=== PATIENT | female | born 1930 | race Caucasian/White ===

== ENCOUNTER 2017-03-04 16:27 | Emergency (ER) | payer OTHER ==
--- NOTE | 2017-03-04 17:58 | ED NURSING NOTES ---
Clinical Report - Nurses [facility] [address] [place] [address] 03/04/2017 16:27 Patient: IMAN DO TRIAGE Triage time 16:25. Acuity: LEVEL 3. Chief Complaint: CHEST PAIN. 17:09 03/04/17. Alert. No acute distress. SEPSIS SCREEN: Sepsis Screen. Negative (no infection suspected/documented). DAIN COMA SCORE: Dain Coma Scale: 15- eyes open spontaneously (4); best verbal response- oriented x 4 (5); best motor response- obeys commands (6). --17:09 Aaliyah Booth R.N. 16:32 03/04/17. BP: 143/84. HR: 102. RR: 13. O2 saturation: 94%. Temp: 98.9 F. Pain level now: 0/10. --17:09 Aaliyah Booth R.N. Weight: 86.1 kg estimated. Height/Length: 66 inches Estimated. BMI: 30.7. --17:06 Aaliyah Booth R.N. Medications None. --16:36 Aaliyah Booth R.N. Allergies None. --16:37 Aaliyah Booth R.N. History Arrived by EMS. Historian: patient. This started today. ( Patient states that she began feeling abdominal pain and bloating after eating lunch. She reports that the pain moved up to her chest, so she called EMS.). ( abdominal pain). No difficulty breathing, sweating episodes, fever or cough. Treatment TELEPHONE ENGINEER: None. PAST MEDICAL HX: Immunizations: up-to-date. Denies current . SOCIAL HX: Smoker- current status unknown. No alcohol use or drug use. FALL RISK ASSESSMENT: Fall risk assessment completed. No fall risk identified. NUTRITIONAL RISK ASSESSMENT: The nutritional risk assessment revealed no deficiencies. FUNCTIONAL ASSESSMENT: Functional assessment: no impairments noted. LEARNING NEEDS ASSESSMENT: The learning needs assessment revealed no barriers. SKIN INTEGRITY ASSESSMENT: Skin integrity risk assessment completed. No skin integrity risk identified. --17:09 Aaliyah Booth R.N. PROBLEMS: Chest Pain of GI Origin. Skin Cancer. Hypertension. CVA - Cerebrovascular Accident. Sprain. Herpes Zoster. Aneurysm, Cerebral. Dizziness. --16:37 Aaliyah Booth R.N. ADDITIONAL SURGERIES: Hysterectomy. --16:37 Aaliyah Booth R.N. Brain surgery after CVA. --17:12 Chan Kline R.N. Interventions ID band on patient. To treatment room. --17:09 Aaliyah Booth R.N. NURSING PROGRESS NOTES EKG time: (1720). EKG was ordered, performed by a tech and shown to the ED physician. --17:21 Ansley Funez ER Tech1. DISPOSITION / DISCHARGE 18:50. No learning barriers present. Discharge instructions provided and reviewed with the patient. Reviewed medication(s). Treatments reviewed. Reviewed diet. Patient verbalized understanding. Written instructions provided in Spanish. The patient was discharged by the physician. She was discharged home. She left the Emergency Department in a wheelchair and via taxi. --07:32 Aaliyah Booth R.N. 07:30 03/05/17. BP: 136/69. HR: 80. RR: 15. O2 saturation: 98%. Temp: deferred. Pain level now: 0/10. --07:32 Aaliyah Booth R.N. Locked/Released at 03/05/2017 7:32 by Aaliyah Booth R.N.
--- NOTE | 2017-03-04 17:58 | ED CLINICAL REPORT ---
Clinical Report - Physicians/Mid Levels [facility] [address] [place] [address] 03/04/2017 16:27 Patient: IMAN DO Time Seen: 16:38. Arrived- By ambulance. Historian- patient and EMS personnel. HISTORY OF PRESENT ILLNESS Chief Complaint: ABDOMINAL PAIN and CHEST PAIN. It is described as "pain" and burning. No radiation. It is described as located in the central chest and the epigastric area. This started today about one hour ago and is now gone. At its maximum, severity described as moderate. When seen in the E.D., it was gone. Modifying factors- worsened by food. Not relieved by anything. No nausea, loss of appetite, vomiting or diarrhea. (Patient states that the pain began after she ate her lunch. Patient denies current complaints.). Similar symptoms previously: Occasionally. Recent medical care: Not recently seen/assessed. REVIEW OF SYSTEMS No constipation, black stools, hematemesis, difficulty with urination or pain with urination. No urinary frequency, bloody stools, fever, headache or sore throat. No blurred vision, difficulty breathing, cough, joint pain or skin rash. No chills or back pain. The patient has had chest pain (- gone). All systems otherwise negative, except as recorded above. PAST HISTORY Problems: Chest Pain of GI Origin. Skin Cancer. Hypertension. CVA - Cerebrovascular Accident. Herpes Zoster. Aneurysm, Cerebral. Dizziness. Additional Surgeries: Brain surgery after CVA. Hysterectomy. Medications: None. Allergies: None. SOCIAL HISTORY Never smoker. No alcohol use or drug use. ADDITIONAL NOTES The nursing notes have been reviewed. PHYSICAL EXAM Vital Signs: 03/04/2017 16:32 BP: 143/84. HR: 102. RR: 13. O2 saturation: 94%. Temp: 98.9 F. Pain level now: 0/10. Have been reviewed. Appearance: Alert. No acute distress. (Patient is appropriate and conversant without difficulty. She is well-appearing.). Eyes: Pupils equal, round and reactive to light. Eyes normal inspection. ENT: Nose normal. Neck: Normal inspection. CVS: Normal heart rate and rhythm. Heart sounds normal. Pulses normal. Respiratory: No respiratory distress. Breath sounds normal. Abdomen: Soft and nontender. Back: Normal inspection. Skin: Skin warm and dry. Normal skin color. No rash. Normal skin turgor. Extremities: Extremities exhibit normal ROM. No lower extremity edema. Neuro: No motor deficit. No sensory deficit. (Patient is grossly oriented.). LABS, X-RAYS, AND EKG EKG: EKG time: (1719). No acute process. No acute ischemia. Normal sinus rhythm. Rate: 84. Normal P waves. Normal JAYA. Normal QRS complex. Normal axis. Normal ST and T waves, QT and QTc. Prior EKG unavailable. The study has been interpreted contemporaneously by me. The study has been independently viewed by me. The EKG appears to be a good tracing. I agree with and confirm the computer reading of the EKG. Pulse Oximetry: 03/04/2017 16:32 O2 saturation: 94%. (FIO2 - room air). Interpretation: normal. PROGRESS AND PROCEDURES Course of Care: Patient was evaluated by myself in the emergency department and was found to be doing well. She was no longer symptomatic. EKG was unremarkable and I did not feel further diagnostic testing was indicated. No emergent condition was identified. Patient counseled in person regarding the patient's stable condition, test results, diagnosis and need for follow-up. Concerns were addressed. Old medical records reviewed. Disposition: Discharged. Condition: stable and improved. CLINICAL IMPRESSION Gastroesophageal reflux disease. INSTRUCTIONS Drink plenty of fluids. (Your EKG looks good.). Warnings: GENERAL WARNINGS: Return or contact your physician immediately if your condition worsens or changes unexpectedly, if not improving as expected, or if other problems arise. Prescription Medications: Prilosec 20 mg capsules: take 1 capsule orally every day. Dispense thirty (30). No refill. Substitution is permissible. Follow-up: Follow up with your doctor as needed. Understanding of the discharge instructions verbalized by patient. (Electronically signed by Neida Gonzalez MD 03/04/2017 22:03)
--- NOTE | 2017-03-04 17:58 | ED ORDER SUMMARY ---
..... Patient: IMAN DO OrderSheet [facility] VisitID: [id number] [address] [place] [address] 86y, F Registration Date/Time: 03/04/2017 ORDER SHEET Weight: 86.1 kg (estimated) Allergies: None GENERAL ORDERS: EKG - ER Stat (17:10 03/04/2017 Sujit RIBERA) (17:11 LNations ER Tech1) MEDICATION ORDERS: IV FLUIDS: ORDER SHEET NOTES: [Electronically signed by Neida Gonzalez MD (22:03 03/04/2017)] [Electronically signed by Aaliyah Booth R.N. (07:32 03/05/2017)] [Electronically locked/signed by Aaliyah Booth R.N. (07:32 03/05/2017)]
--- NOTE | 2017-03-04 17:58 | ED ORDER SUMMARY ---
..... Patient: IMAN DO OrderSheet [facility] VisitID: [id number] [address] [place] [address] 86y, F Registration Date/Time: 03/04/2017 ORDER SHEET Weight: 86.1 kg (estimated) Allergies: None GENERAL ORDERS: EKG - ER Stat (17:10 03/04/2017 Sujit RIBERA) (17:11 LNations ER Tech1) MEDICATION ORDERS: IV FLUIDS: ORDER SHEET NOTES: [Electronically signed by Neida Gonzalez MD (22:03 03/04/2017)] [Electronically signed by Aaliyah Booth R.N. (07:32 03/05/2017)] [Electronically locked/signed by Aaliyah Booth R.N. (07:32 03/05/2017)]
--- NOTE | 2017-03-04 17:58 | ED NURSING NOTES ---
Clinical Report - Nurses [facility] [address] [place] [address] 03/04/2017 16:27 Patient: IMAN DO TRIAGE Triage time 16:25. Acuity: LEVEL 3. Chief Complaint: CHEST PAIN. 17:09 03/04/17. Alert. No acute distress. SEPSIS SCREEN: Sepsis Screen. Negative (no infection suspected/documented). DAIN COMA SCORE: Dain Coma Scale: 15- eyes open spontaneously (4); best verbal response- oriented x 4 (5); best motor response- obeys commands (6). --17:09 Aaliyah Booth R.N. 16:32 03/04/17. BP: 143/84. HR: 102. RR: 13. O2 saturation: 94%. Temp: 98.9 F. Pain level now: 0/10. --17:09 Aaliyah Booth R.N. Weight: 86.1 kg estimated. Height/Length: 66 inches Estimated. BMI: 30.7. --17:06 Aaliyah Booth R.N. Medications None. --16:36 Aaliyah Booth R.N. Allergies None. --16:37 Aaliyah Booth R.N. History Arrived by EMS. Historian: patient. This started today. ( Patient states that she began feeling abdominal pain and bloating after eating lunch. She reports that the pain moved up to her chest, so she called EMS.). ( abdominal pain). No difficulty breathing, sweating episodes, fever or cough. Treatment INSPECTOR SUBASSEMBLIES: None. PAST MEDICAL HX: Immunizations: up-to-date. Denies current . SOCIAL HX: Smoker- current status unknown. No alcohol use or drug use. FALL RISK ASSESSMENT: Fall risk assessment completed. No fall risk identified. NUTRITIONAL RISK ASSESSMENT: The nutritional risk assessment revealed no deficiencies. FUNCTIONAL ASSESSMENT: Functional assessment: no impairments noted. LEARNING NEEDS ASSESSMENT: The learning needs assessment revealed no barriers. SKIN INTEGRITY ASSESSMENT: Skin integrity risk assessment completed. No skin integrity risk identified. --17:09 Aaliyah Booth R.N. PROBLEMS: Chest Pain of GI Origin. Skin Cancer. Hypertension. CVA - Cerebrovascular Accident. Sprain. Herpes Zoster. Aneurysm, Cerebral. Dizziness. --16:37 Aaliyah Booth R.N. ADDITIONAL SURGERIES: Hysterectomy. --16:37 Aaliyah Booth R.N. Brain surgery after CVA. --17:12 Chan Kline R.N. Interventions ID band on patient. To treatment room. --17:09 Aaliyah Booth R.N. NURSING PROGRESS NOTES EKG time: (1720). EKG was ordered, performed by a tech and shown to the ED physician. --17:21 Ansley Funez ER Tech1. DISPOSITION / DISCHARGE 18:50. No learning barriers present. Discharge instructions provided and reviewed with the patient. Reviewed medication(s). Treatments reviewed. Reviewed diet. Patient verbalized understanding. Written instructions provided in French. The patient was discharged by the physician. She was discharged home. She left the Emergency Department in a wheelchair and via taxi. --07:32 Aaliyah Booth R.N. 07:30 03/05/17. BP: 136/69. HR: 80. RR: 15. O2 saturation: 98%. Temp: deferred. Pain level now: 0/10. --07:32 Aaliyah Booth R.N. Locked/Released at 03/05/2017 7:32 by Aaliyah Booth R.N.
--- NOTE | 2017-03-05 07:32 | ED MAR SUMMARY ---
..... Medication Administration Record [facility] [address], [place] [id number] Patient: IMAN DO Visit ID: [id number] 86y, F Weight: 86.1 kg Height/Length: 66 in BMI: 30.7 ALLERGIES: None
--- NOTE | 2017-03-05 07:32 | ED MED RECONCILIATION SUMMARY ---
Patient: IMAN DO Medication Reconciliation Report [facility] VisitID: [id number] [address] [place] [address] 86y, F Registration Date/Time: 03/04/2017 Weight: 86.1 kg Height/Length: 66 in. BMI: 30.7 ALLERGIES: None The patient's Home Medications are listed below: NONE. The source(s) of the original Home Medication information: Not obtained. The following Medications were given to the patient in the Emergency Department: None. The following Medications were prescribed to the patient: Prilosec 20 mg capsules: take 1 capsule orally every day. Dispense thirty (30). No refill. Substitution is permissible. -- Neida Gonzalez MD
--- NOTE | 2017-03-05 07:32 | ED DISCHARGE INSTRUCTIONS ---
Patient: IMAN DO General Instructions [facility] VisitID: [id number] [place] [address] 86y, F Registration Date/Time: 03/04/2017 Gastroesophageal reflux disease. INSTRUCTIONS Drink plenty of fluids. (Your EKG looks good.). Warnings: GENERAL WARNINGS: Return or contact your physician immediately if your condition worsens or changes unexpectedly, if not improving as expected, or if other problems arise. Prescription Medications: Prilosec 20 mg capsules: take 1 capsule orally every day. Dispense thirty (30). No refill. Substitution is permissible. Follow-up: Follow up with your doctor as needed. Understanding of the discharge instructions verbalized by patient. ADDITIONAL INFORMATION GERD (Adult) The esophagus is a tube that carries food from the mouth to the stomach. A valve at the lower end of the esophagus prevents stomach acid from flowing upward. If this valve does not work properly, acid from the stomach enters the esophagus. If this occurs over and over, the acid will injure the lining of the esophagus. This condition is called GERD (gastroesophageal reflux disease) or acid reflux. When stomach acid flows upward into the esophagus, it causes burning, pressure or sharp pain in the upper abdomen or mid to lower chest. The pain can spread to the neck, back, or shoulder, similar to heart pain (angina). There may be belching, an acid taste in the back of the throat, chronic cough, or sore throat or hoarseness. GERD symptoms often occur during the day after a big meal, but it can also occur at night when lying down. Smoking,as well as drinking alcohol, increases the risk of GERD. GERD is a chronic condition. Once it begins, it is often lifelong. Treatment includes changes in eating habits and the use of acid lore medications to decrease the amount of acid in the stomach. Symptoms often improve with treatment, but if treatment is stopped, the symptoms usually return after a few months. So most persons with GERD will need to continue treatment. Home Care: Take the prescribed acid lore medication for the full course of treatment even if you begin to feel better sooner. This medication can take up to several days to fully control your symptoms. If you cant afford the prescribed medication, you can try vyjg-imw-bocbuta acid blockers, such as Pepcid AC, Tagamet, Zantac, or Aciphex. If these do not relieve your symptoms, a stronger acid-lore can be tried, such as Prilosec OTC. You can use antacids, such as Tums, Rolaids, Mylanta, or Maalox, for pain. This will be useful the first few days after starting acid blockers when the blockers havent started working yet. Follow the directions on the label. Liquid antacids may work better than tablets. Note that antacids can interfere with absorption of certain medications. Specifically, do not take Tagamet (cimetidine), Zantac (ranitidine), or Carafate (sucralfate) within 1 hour of taking an antacid. Talk with your pharmacist if you have any questions. Limit or avoid fatty, fried, and spicy foods, as well as coffee, chocolate, mint, and foods with high acid content such as tomatoes and citrus fruit and juices (orange, grapefruit, lemon). Avoid alcohol and smoking. Dont eat large meals, especially at night. Frequent, smaller meals are best. Do not lie down right after eating. And dont eat anything 3 hours before going to bed. If you are overweight, losing weight will reduce symptoms. Women should not wear corsets or girdles because this increases pressure on the stomach and worsens reflux. If your symptoms occur during sleep, use a foam wedge to elevate your upper body (not just your head.) Or, place 4" blocks under the head of your bed. Follow Up with your doctor or as advised by our staff. Further testing may be needed. If you do not begin to improve over the next 4 days, contact your doctor. If you had an x-ray, CT scan, or ECG (electrocardiogram), it will be reviewed by a specialist. Youll be notified of any new findings that affect your care. Get Prompt Medical Attention if any of the following occur: Stomach pain gets worse or moves to the lower right abdomen (appendix area) Chest pain appears or gets worse, or spreads to the back, neck, shoulder, or arm Frequent vomiting (cant keep down liquids) Blood in the stool or vomit (red or black in color) Feeling weak or dizzy, fainting, or trouble breathing Fever of 100.4F (38C) or higher, or as directed by your healthcare provider You have been given the following additional information: GERD (Adult) (Electronically signed by Neida Gonzalez MD 03/04/2017 22:03)
--- NOTE | 2017-03-05 07:32 | ED MAR SUMMARY ---
..... Medication Administration Record [facility] [address] [place], [place] [id number] Patient: IMAN DO Visit ID: [id number] 86y, F Weight: 86.1 kg Height/Length: 66 in BMI: 30.7 ALLERGIES: None
--- NOTE | 2017-03-05 07:32 | ED MED RECONCILIATION SUMMARY ---
Patient: IMAN DO Medication Reconciliation Report [facility] VisitID: [id number] [address] [place] [address] 86y, F Registration Date/Time: 03/04/2017 Weight: 86.1 kg Height/Length: 66 in. BMI: 30.7 ALLERGIES: None The patient's Home Medications are listed below: NONE. The source(s) of the original Home Medication information: Not obtained. The following Medications were given to the patient in the Emergency Department: None. The following Medications were prescribed to the patient: Prilosec 20 mg capsules: take 1 capsule orally every day. Dispense thirty (30). No refill. Substitution is permissible. -- Neida Gonzalez MD
== END 2017-03-04 18:50 | disposition home or self-care (01) ==
LOC: ED SRH 16:27
DX: K21.9 Gastro-esophageal reflux disease without esophagitis (principal); I10 Essential (primary) hypertension

== ENCOUNTER 2017-03-18 08:29 | Observation (INO) | payer OTHER ==
[~2017-03-18] VITALS: Ht 170.2 cm; Wt 70.7 kg
--- NOTE | 2017-03-18 11:07 | ED ORDER SUMMARY ---
..... Patient: IMAN DO OrderSheet [facility] VisitID: [id number] [address] [place] [address] 87y, F Registration Date/Time: 03/18/2017 ORDER SHEET Weight: 68.0 kg (estimated) Allergies: None GENERAL ORDERS: Chest 1V Urgent (:03/18/2017 PHutchinson DO) (Ack 9:19 KHoerner) (9:25 KHoerner) UA-Culture if indicated Urgent (:03/18/2017 PHutchinson DO) (Ack 9:19 KHoerner) (9:24 EBonham) Cardiac Panel Stat (03/18/2017 PHutchinson DO) (Ack 9:19 KHoerner) (9:24 EBonham) BNP Urgent (:03/18/2017 PHutchinson DO) (Ack 9:19 KHoerner) (9:24 EBonham) Amylase Urgent (:03/18/2017 PHutchinson DO) (Ack 9:19 KHoerner) (9:24 EBonham) PT with INR Urgent (:03/18/2017 PHutchinson DO) (Ack 9:19 KHoerner) (9:24 EBonham) TSH Urgent (:03/18/2017 PHutchinson DO) (Ack 9:19 KHoerner) (9:24 EBonham) Pulse oximeter (:03/18/2017 PHutchinson DO) (9:24 EBonham) EKG - ER Stat (:03/18/2017 PHutchinson DO) (9:24 KHoerner) Vitals (:03/18/2017 PHutchinson DO) (9:24 EBonham) Hip 2V Left w AP Pelvis (may have fallen ) Urgent (:03/18/2017 PHutchinson DO) (Ack 9:19 KHoerner) (9:25 KHoerner) Call (Place call to): (Dr Pinedo) (11:07 03/18/2017 PHutchinson DO) (11:08 KHoerner) MEDICATION ORDERS: IV FLUIDS: IV NS : initial bolus 500 mL (1000 mL/hr), then 250 mL/hr for X2 (NOW) (09:18 03/18/2017 Junior HITCHCOCK) (10:13 Jesse) ORDER SHEET NOTES: [Electronically signed by Christiana Duarte (14:03/18/2017)] [Electronically signed by Blade Borja DO (20:35 03/18/2017)] [Electronically locked/signed by Christiana Duarte (14:03/18/2017)]
--- NOTE | 2017-03-18 11:07 | ED NURSING NOTES ---
Clinical Report - Nurses [facility] [address] [place] [address] 03/18/2017 8:30 Patient: IMAN DO TRIAGE Triage time 8030. Acuity: LEVEL 3. Chief Complaint: FALL. Alert. --08:47 Christiana Duarte 08:42 03/18/17. BP: 139/67. HR: 79. RR: 18. O2 saturation: 94%. Temp: 98.7 F. Pain level now 06/11. --08:47 Christiana Duarte. Weight: 68 kg estimated. Height/Length: 62 inches Estimated. BMI: 27.4. --08:42 Christiana Duaret. Medications None. --08:44 Christiana Duarte. Allergies None. --08:44 Christiana Duarte. History Arrived by EMS. Historian: EMS and patient. Location of injuries: left buttock and right elbow. This occurred last night. Treatment PHILATELIC CONSULTANT: None. SKIN INTEGRITY ASSESSMENT: Skin integrity risk assessment was performed. Risk factors identified include restricted mobility and limited positioning assistance. NUTRITIONAL RISK ASSESSMENT: The nutritional risk assessment revealed no deficiencies. FUNCTIONAL ASSESSMENT: Functional assessment performed: requires assistance with the activities of daily living. LEARNING NEEDS ASSESSMENT: A learning needs assessment was performed. Factors affecting the patient's ability to learn include cognitive limitations. --08:47 Christiana Duarte ( Pt sts she slid out of chair during the night and laid on the floor all night). --09:29 Christiana Duarte. PROBLEMS: Gastroesophageal Reflux Disease. Chest Pain of GI Origin. Skin Cancer. Hypertension. CVA - Cerebrovascular Accident. Sprain. Herpes Zoster. Aneurysm, Cerebral. Dizziness. --08:44 Christiana Duarte. ADDITIONAL SURGERIES: Brain surgery after CVA. Hysterectomy. --08:44 Christiana Duarte. Interventions ID band on patient. To treatment room. --08:47 Christiana Duarte. PHYSICAL ASSESSMENT To room via stretcher. Patient gowned. GENERAL / NEURO / PSYCH: Alert. Oriented X 4. Appears in no acute distress. RESPIRATORY: Decreased breath sounds. CVS: Normal heart rate and rhythm. Pulses within normal limits. Capillary refill less than 2 seconds. GI / : Abdomen soft and nontender. SKIN: Skin is warm. ( yeast and redness under each breast). --08:48 Christiana Duarte. NURSING PROGRESS NOTES Reassurance given. Side rails up x 2. Bed placed in lowest position. Brakes of bed on. Patient ready for evaluation- chart flagged. --08:49 Christiana Duarte 09:26 03/18/17. EKG time: (0924 AM). EKG was ordered, performed by a tech and shown to the ED physician. --09:26 Sydnee Oconnor 10:03/18/2017 Site #1 started via IV in the right antecubital space with an 22g angiocath, with aseptic technique and good blood return; two attempts. Blood drawn: rainbow set. Labeled in the presence of the patient and sent to the lab. Saline lock flushed with 10 mL saline. --10:13 Christiana Duarte 10:13 03/18/2017 Started bag #1 1000 mL IV Fluids IV NS (Saline); bolus of 500 mL over 1 hour(s) then at 500 mL/hr over 2 hour(s) via site #1 --10:13 Christiana Duarte The patient is sleeping. Overall patient status is the same- she states feels better. Patient waiting for admit bed. --11:35 Christiana Duarte 11:31 03/18/17. BP: 146/66. HR: 73. RR: 18. O2 saturation: 93%. --11:35 Christiana Duarte ( Hospitalist here to evaluate pt, pt given ice water). --12:09 Christiana Duarte The patient is resting quietly and sleeping. Overall patient status is the same- she states feels the same. --13:16 Christiana Duarte 13:13 03/18/17. BP: 126/91. HR: 67. RR: 18. O2 saturation: 92%. --13:16 Christiana Duarte. DISPOSITION / DISCHARGE Departure time: 1425. Condition at departure: improved and stable. Transported via stretcher by transport team. Report was given to a nurse via a phone call. All questions were answered. Report was acknowledged and care was transferred. --14:25 Christiana Duarte. Locked/Released at 03/18/2017 14:25 by Christiana Duarte,
--- NOTE | 2017-03-18 11:07 | ED ORDER SUMMARY ---
..... Patient: IMAN DO OrderSheet [facility] VisitID: [id number] [address] [place] [address] 87y, F Registration Date/Time: 03/18/2017 ORDER SHEET Weight: 68.0 kg (estimated) Allergies: None GENERAL ORDERS: Chest 1V Urgent (:03/18/2017 PHutchinson DO) (Ack 9:19 KHoerner) (9:25 KHoerner) UA-Culture if indicated Urgent (:03/18/2017 PHutchinson DO) (Ack 9:19 KHoerner) (9:24 EBonham) Cardiac Panel Stat (03/18/2017 PHutchinson DO) (Ack 9:19 KHoerner) (9:24 EBonham) BNP Urgent (:03/18/2017 PHutchinson DO) (Ack 9:19 KHoerner) (9:24 EBonham) Amylase Urgent (:03/18/2017 PHutchinson DO) (Ack 9:19 KHoerner) (9:24 EBonham) PT with INR Urgent (:03/18/2017 PHutchinson DO) (Ack 9:19 KHoerner) (9:24 EBonham) TSH Urgent (:03/18/2017 PHutchinson DO) (Ack 9:19 KHoerner) (9:24 EBonham) Pulse oximeter (:03/18/2017 PHutchinson DO) (9:24 EBonham) EKG - ER Stat (:03/18/2017 PHutchinson DO) (9:24 KHoerner) Vitals (:03/18/2017 PHutchinson DO) (9:24 EBonham) Hip 2V Left w AP Pelvis (may have fallen ) Urgent (:03/18/2017 PHutchinson DO) (Ack 9:19 KHoerner) (9:25 KHoerner) Call (Place call to): (Dr Pinedo) (11:07 03/18/2017 PHutchinson DO) (11:08 KHoerner) MEDICATION ORDERS: IV FLUIDS: IV NS : initial bolus 500 mL (1000 mL/hr), then 250 mL/hr for X2 (NOW) (09:18 03/18/2017 Junior HITCHCOCK) (10:13 Jesse) ORDER SHEET NOTES: [Electronically signed by Christiana Duarte (14:03/18/2017)] [Electronically signed by Blade Borja DO (20:35 03/18/2017)] [Electronically locked/signed by Christiana Duarte (14:03/18/2017)]
--- NOTE | 2017-03-18 11:07 | ED CLINICAL REPORT ---
Clinical Report - Physicians/Mid Levels [facility] [address] [place] [address] 03/18/2017 8:30 Patient: IMAN DO Time Seen: 09:08. Arrived- By ambulance. Historian- patient. HISTORY OF PRESENT ILLNESS Location of injuries- right elbow and left thigh. Chief Complaint: FALL. The injury occurred last night. Occurred at home. ( Pt may have fallen, as she was found at the foot of her chair on the ground. May have been in this position all night. Pt has no recollection of a fall and no complaints of pain now.). Fell. The patient complains of moderate pain. No blow to the head, neck pain, loss of consciousness or seizure. Not dazed. REVIEW OF SYSTEMS The patient complains of pain on weight bearing. No numbness, dizziness, loss of vision, hearing loss or difficulty breathing. No weakness, headache, abdominal pain, laceration or fever. No vomiting. All systems otherwise negative, except as recorded above. PAST HISTORY PROBLEMS: Gastroesophageal Reflux Disease. Chest Pain of GI Origin. Dementia. Skin Cancer. Hypertension. CVA - Cerebrovascular Accident. Sprain. Herpes Zoster. Aneurysm, Cerebral. Dizziness. SURGERIES: Brain surgery after CVA. Hysterectomy. Medications: None. Allergies: None. SOCIAL HISTORY Never smoker. No alcohol use or drug use. Residence: Adult Family Home Is a local resident. Resides in an assisted living center. ADDITIONAL NOTES The nursing notes have been reviewed. PHYSICAL EXAM Vital Signs: 03/18/2017 08:42 BP: 139/67. HR: 79. RR: 18. O2 saturation: 94%. Temp: 98.7 F. Appearance: No acute distress. (Sleeping comfortably, but easily arousable before exam). Head: Head non-tender. No swelling of head. No Colin's sign or raccoon eyes. Eyes: EOM intact. ENT: No dental injury. Pharynx normal. Neck: Painless ROM. Non-tender. No vertebral tenderness. CVS: Heart sounds normal. Pulses normal. Respiratory: Breath sounds normal. Chest nontender. Abdomen: No visible injury. Soft and nontender. No mass. Back: No tenderness. ROM normal. No vertebral point tenderness. Skin: Skin intact. Skin warm and dry. (right elbow area skin erythema without breakdown; inguinal area erythema. calcaneal area erythma). Extremities: Soft tissue tenderness present. Pelvis stable. Left thigh: mild erythema and moderate tenderness located in the posterior and lateral aspect of upper thigh. Neurovascular intact distally. No swelling, abrasion, ecchymosis, puncture wound or foreign body. No deformity. Neuro: Dain Coma Scale: 14- eyes open spontaneously (4); best verbal response- disoriented (4); best motor response- obeys commands (6). No motor deficit. No sensory deficit. LABS, X-RAYS, AND EKG EKG: EKG time: (09:24). Normal sinus rhythm. Rate: 70. Normal P waves. Normal JAYA. Nondiagnostic Q waves in lead III and aVR. Non-specific ST segment / T wave abnormalities. Non-specific T wave flattening in lead I, aVL and V6. The study has been interpreted contemporaneously by me. The EKG appears to be a good tracing. Chest X-ray: (increased interstitial markings with normal heart size; no focal infiltrate; right upper lobe nodule). Views: AP (portable). Technique: good. The X-rays were interpreted contemporaneously by me. Rt Hip X-ray: No fracture of the right hip or pelvis or hip dislocation. (ASCVD). Views: 2 view hip series. Technique: good. The X-rays were interpreted contemporaneously by me. Laboratory Tests: UA-Culture if indicated: (OMER: 03/18/2017 10:10) ( MsgRcvd 03/18/2017 12:00) Final results Test Result Flag Units (Reference) URINE COLOR HENNY URINE APPEARANCE HAZY URINE GLUCOSE NEGATIVE (NEGATIVE) URINE BILIRUBIN ICTOTEST NEGATIVE (NEGATIVE) URINE KETONE NEGATIVE (NEGATIVE) URINE SPECIFIC GRAVITY 1.025 (1.010-1.030) URINE PH 5.5 (5.0-8.0) URINE PROTEIN 1+ (NEGATIVE) URINE UROBILINOGEN 1.0 EU/dL (0.2-1.0) URINE NITRITE NEGATIVE (NEGATIVE) URINE BLOOD 2+ (NEGATIVE) URINE LEUK ESTERASE NEGATIVE (NEGATIVE) URINE RBC 3-5 rbc/hpf (0-1) URINE WBC 0-1 wbc/hpf (0-1) URINE EPITHELIAL CELLS 1-3 EPI/hpf (0-5) URINE BACTERIA NONE SEEN (NONE SEEN) URINE COMMENT CULT NOT INDICATED 2+ AMORPHOUS URATESURINE CULTURES ARE SET-UP BASED ON THE FOLLOWING CRITERIA:POSITIVE NITRITEPOSITIVE LEUKOCYTE ESTERASEGREATER THAN 10 WHITE BLOOD CELLSMODERATE (2+) OR GREATER BACTERIA CBC w Diff: (OMER: 03/18/2017 09:58) ( [facility] 03/18/2017 10:21) Final results Test Result Flag Units (Reference) WHITE BLOOD COUNT 10.7 K/uL (4.5-11.5) RED BLOOD COUNT 4.87 M/uL (4.00-5.20) HEMOGLOBIN 12.2 gm/dL (12.0-16.0) HEMATOCRIT 38.7 % (36.0-46.0) MEAN CELL VOLUME 79 L fL (80-100) MEAN CORPUSCULAR HGB 25 L pg (26-34) MEAN CORPUSCULAR HGB CONC 32 g/dL (31-37) RED CELL DISTRIBUTION WIDTH 18.6 H % (11.6-14.8) PLATELET COUNT 171 K/uL (150-400) NEUTROPHIL % 70.3 % (50-75) LYMPH % 9.9 L % (25-40) MONO % 19.1 H % (3-14) EOSINOPHIL % 0.1 % (0-4) BASOPHIL % 0.6 % (0-2) PT with INR: (OMER: 03/18/2017 09:58) ( [facility] 03/18/2017 10:50) Final results Test Result Flag Units (Reference) INR 1.2 (0.8-1.2) Low Intensity Therapy: INR 1.5-2.0 PT range 18.5-23.1Mod.Intensity Therapy: INR 2.0-3.0 PT range 23.1-31.5High Intensity Therapy: INR 2.5-3.5 PT range 27.4-35.5High Intensity Therapy 2: INR 3.0-4.0 PT range 31.5-39.3 BNP: (OMER: 03/18/2017 09:58) ( MsgRcvd 03/18/2017 10:36) Final results Test Result Flag Units (Reference) B-TYPE NATRIURETIC PEPTIDE 141 H pg/ml (5-100) CHEM 13 PANEL: (OMER: 03/18/2017 09:58) ( MsgRcvd 03/18/2017 10:44) Final results Test Result Flag Units (Reference) GLUCOSE 131 H mg/dL (70-110) BUN 23 H mg/dL (7-18) CREATININE 0.8 mg/dL (0.6-1.3) Estimated GFR >60 mL/min Estimated GFR- >60 mL/min Note: Persistent reduction over 3 months in eGFR<60 mL/min/1.73 m2 defines CKD. Patients with eGFR values>=60 mL/min/1.73 m2 may also have CKD if evidence ofpersistent proteinuria. Additional information may be foundat www.kidney.org. SODIUM 150 H mmol/L (136-145) POTASSIUM 3.6 mmol/L (3.5-5.1) CHLORIDE 108 H mmol/L (98-107) CARBON DIOXIDE 41 *H mmol/L (21-32) CALCIUM 8.1 L mg/dL (8.5-10.1) TOTAL PROTEIN 7.2 g/dL (6.4-8.2) ALBUMIN 2.9 L g/dL (3.3-5.0) BILIRUBIN, TOTAL 1.2 H mg/dL (0.0-1.0) ALKALINE PHOSPHATASE 151 H U/L (46-116) AST (SGOT) 15 U/L (15-37) ALT (SGPT) 23 U/L (12-78) CPK 115 U/L (24-260) MAGNESIUM 2.2 mg/dL (1.8-2.4) AMYLASE 18 L U/L (25-115) TROPONIN I <0.05 ng/mL (0.00-1.5) TROPONIN REFERENCE RANGE:<0.1 NEGATIVE0.1-1.5 INDETERMINANT>1.5 POSITIVE THYROID STIMULATING HORMONE 0.320 uIU/mL (0.30-3.74) . PROGRESS AND PROCEDURES Course of Care: Normal Saline 1 liter IVPB given. Pt is quite dehydrated and cannot even stand now. She is clearly not able to care for herself now with early decubitus ulcers and skin fungal infections and altered mentaion (hyperosmolar state from dehydration with contraction alkalosis)She will likely require a higher level of care after hospital discharge - currently at [facility] and may be able to move to full nursing side. Discussed case with hospitalist, (Khris). Reviewed test results. Agreed upon treatment plan and decision to admit. Health care provider will see patient in ED. Patient/family counseled. Old ED records reviewed. Admission orders written. Disposition: Admitted to Acute Care. Condition: stable, guarded and improved. CLINICAL IMPRESSION Microscopic hematuria. Acute mild left ventricular congestive heart failure. Moderate dehydration (with contraction alkalosis). Abnormal liver function test. Moderate hypernatremia. Tinea corporis (under breast folds). Tinea cruris. Fall on same level by slipping. Stage 1 decubitus ulcers - sacral area, right elbow and left calcaneal area Adult failure to thrive. (Electronically signed by Blade Borja DO 03/18/2017 20:35)
--- NOTE | 2017-03-18 11:07 | ED NURSING NOTES ---
Clinical Report - Nurses [facility] [address] [place] [address] 03/18/2017 8:30 Patient: IMAN DO TRIAGE Triage time 8030. Acuity: LEVEL 3. Chief Complaint: FALL. Alert. --08:47 Christiana Duatre 08:42 03/18/17. BP: 139/67. HR: 79. RR: 18. O2 saturation: 94%. Temp: 98.7 F. Pain level now 06/11. --08:47 Christiana Duarte. Weight: 68 kg estimated. Height/Length: 62 inches Estimated. BMI: 27.4. --08:42 Christiana Duarte. Medications None. --08:44 Christiana Duarte. Allergies None. --08:44 Christiana Duarte. History Arrived by EMS. Historian: EMS and patient. Location of injuries: left buttock and right elbow. This occurred last night. Treatment STAFF ELECTRICAL ENGINEER: None. SKIN INTEGRITY ASSESSMENT: Skin integrity risk assessment was performed. Risk factors identified include restricted mobility and limited positioning assistance. NUTRITIONAL RISK ASSESSMENT: The nutritional risk assessment revealed no deficiencies. FUNCTIONAL ASSESSMENT: Functional assessment performed: requires assistance with the activities of daily living. LEARNING NEEDS ASSESSMENT: A learning needs assessment was performed. Factors affecting the patient's ability to learn include cognitive limitations. --08:47 Christiana Duarte ( Pt sts she slid out of chair during the night and laid on the floor all night). --09:29 Christiana Duarte. PROBLEMS: Gastroesophageal Reflux Disease. Chest Pain of GI Origin. Skin Cancer. Hypertension. CVA - Cerebrovascular Accident. Sprain. Herpes Zoster. Aneurysm, Cerebral. Dizziness. --08:44 Christiana Duarte. ADDITIONAL SURGERIES: Brain surgery after CVA. Hysterectomy. --08:44 Christiana Duarte. Interventions ID band on patient. To treatment room. --08:47 Christiana Duarte. PHYSICAL ASSESSMENT To room via stretcher. Patient gowned. GENERAL / NEURO / PSYCH: Alert. Oriented X 4. Appears in no acute distress. RESPIRATORY: Decreased breath sounds. CVS: Normal heart rate and rhythm. Pulses within normal limits. Capillary refill less than 2 seconds. GI / : Abdomen soft and nontender. SKIN: Skin is warm. ( yeast and redness under each breast). --08:48 Christiana Duarte. NURSING PROGRESS NOTES Reassurance given. Side rails up x 2. Bed placed in lowest position. Brakes of bed on. Patient ready for evaluation- chart flagged. --08:49 Christiana Duarte 09:26 03/18/17. EKG time: (0924 AM). EKG was ordered, performed by a tech and shown to the ED physician. --09:26 Sydnee Oconnor 10:03/18/2017 Site #1 started via IV in the right antecubital space with an 22g angiocath, with aseptic technique and good blood return; two attempts. Blood drawn: rainbow set. Labeled in the presence of the patient and sent to the lab. Saline lock flushed with 10 mL saline. --10:13 Christiana Duarte 10:13 03/18/2017 Started bag #1 1000 mL IV Fluids IV NS (Saline); bolus of 500 mL over 1 hour(s) then at 500 mL/hr over 2 hour(s) via site #1 --10:13 Christiana Duarte The patient is sleeping. Overall patient status is the same- she states feels better. Patient waiting for admit bed. --11:35 Christiana Duarte 11:31 03/18/17. BP: 146/66. HR: 73. RR: 18. O2 saturation: 93%. --11:35 Christiana Duarte ( Hospitalist here to evaluate pt, pt given ice water). --12:09 Christiana Duarte The patient is resting quietly and sleeping. Overall patient status is the same- she states feels the same. --13:16 Christiana Duarte 13:13 03/18/17. BP: 126/91. HR: 67. RR: 18. O2 saturation: 92%. --13:16 Christiana Duarte. DISPOSITION / DISCHARGE Departure time: 1425. Condition at departure: improved and stable. Transported via stretcher by transport team. Report was given to a nurse via a phone call. All questions were answered. Report was acknowledged and care was transferred. --14:25 Christiana Duarte. Locked/Released at 03/18/2017 14:25 by Christiana Duarte,
--- NOTE | 2017-03-18 12:00 | DIAGNOSTIC IMAGING REPORT ---
PROCEDURE: XR HIP 2VW W W/O AP PELVIS-LT INDICATION: PAIN TECHNIQUE: AP view of the pelvis and hips with lateral view of the left hip. COMPARISON: None. FINDINGS: Vascular calcifications. Right HIP: Osseous structures and joint spaces are normal. PELVIS: Osseous pelvis is normal. IMPRESSION: 1. Negative pelvis and left hip.
--- NOTE | 2017-03-18 12:05 | DIAGNOSTIC IMAGING REPORT ---
PROCEDURE: XR CHEST 1 VIEW INDICATION: COUGH TECHNIQUE: Portable AP view 9:36am COMPARISON: Chest 08/06/2015 and 06/20/2010 FINDINGS: Lungs are clear. Right upper lobe of granuloma. Heart and mediastinum are normal. Thorax is normal. IMPRESSION: 1. No acute infiltrates.
--- NOTE | 2017-03-18 13:00 | HISTORY AND PHYSICAL ---
ADMITTED: 03/18/2017 HISTORY OF PRESENT ILLNESS: This is an 87-year-old white female who was a poor historian, so most of the information was taken from the ER notes and previous medical records. Apparently she went to sleep last night, usually she sleeps on the chair and not on the bed and woke up and found herself on the floor, but there was nobody around, so she had to stay on the floor for several hours and finally was found by one of her friends and was transferred to emergency and workup showed the patient was too weak and very dehydrated, so the patient was being admitted for the IV hydration and further workup and monitoring. MEDICAL/SURGICAL HISTORY: Past medical history: Remarkable for hypertension, dementia, history of stroke, cerebral aneurysm, and GERD. Surgical history: Remarkable for brain surgery for the cerebral aneurysm and hysterectomy and skin cancer removal. Last hospitalization was in 06/2016 and that was for the diverticulitis and abscess formation, patient had surgery. MEDICATIONS: The patient takes no medication at home. ALLERGIES: 1. NO KNOWN DRUG ALLERGY. SOCIAL HISTORY: The patient is a , currently living in an apartment in a facility, but independently. No history of drug or alcohol abuse. No smoking. FAMILY HISTORY: Remarkable for parkinsonism, stroke, alcohol abuse and diabetes mellitus. REVIEW OF SYSTEMS: The patient has been losing weight recently, difficulty with hearing. Some blurred vision. Runny nose. Occasional cough. No sore throat. Occasional shortness of breath, no chest pain. No palpitations. Some indigestion , occasional nausea, no vomiting, no abdominal pain. Normal regular bowel movements. No dysuria, frequency, but urinary incontinence. No arthralgia or myalgia. No headaches, occasional dizziness. No localized weakness. No tingling, no numbness. No syncope. PHYSICAL EXAMINATION: VITAL SIGNS: Blood pressure is 139/67, heart rate is 79, respirations 18, oxygen saturation 94% on room air, and temperature is 98.7. GENERAL APPEARANCE: Well developed, well nourished, good body build, no acute distress. HEAD AND NECK: Ears: Normal tympanic membranes. Mouth: Normal hypopharynx, no exudation, no erythema. Nose: Normal mucosa. Neck: Supple. No JVD. No carotid bruit. No palpable mass. SKIN: Warm and dry with good turgor. The patient has multiple patchy lesions on the upper body on the skin. LUNGS: Clear to auscultation. No rhonchi or wheezing or crackles. HEART: Regular S1, S2. No murmur. No S3 was heard. ABDOMEN: Soft, nontender. Bowel sounds are positive. EXTREMITIES: No edema. Good peripheral pulses. No signs of DVT or cyanosis. MUSCULOSKELETAL: Grossly within normal limits. NEUROLOGIC: Alert and oriented x3. Cranial nerves are grossly intact. No motor deficits. Pupils are equal, round, and reactive to light. Extraocular movements are intact. No nystagmus. No cerebellar signs. LAB/IMAGING: EKG is normal sinus rhythm. Chest x-ray, moderate interstitial marking. Right hip x-ray, no fracture. UA is unremarkable except 2+ blood and 1+ protein. White blood count is 10.7, hemoglobin is 12.2, hematocrit 38.7, and platelet count is 171. INR is 1.2. BNP is 141. Glucose is 131, BUN is 23, creatinine 0.8. Sodium is 150, potassium is 3.6, chloride is 108, CO2 is 41, total protein is 7.2. Liver enzymes unremarkable except a total bilirubin is 1.2 , and alkaline phosphatase 151, amylase is normal. Magnesium is normal. Troponin is less than 0.5. TSH is 0.3. IMPRESSION: 1. Dehydration. 2. Status post fall. 3. Hypertension. 4. Hematuria. PLAN: The patient will be admitted to observation. We will start the patient on IV hydration and monitor the CKs and repeat UA and the patient should be able to be discharged home tomorrow.
[2017-03-18 14:44] VITALS: BP 152/90
--- NOTE | 2017-03-18 16:03 | Progress Note ---
Subjective General ADVANCED CARE PLAN History of Present Illness This is an 87-year-old white female who was a poor historian, so most of the information was taken from the ER notes and previous medical records. Apparently she went to sleep last night, usually she sleeps on the chair and not on the bed and woke up and found herself on the floor, but there was nobody around, so she had to stay on the floor for several hours and finally was found by one of her friends and was transferred to emergency and workup showed the patient was too weak and very dehydrated, so the patient was being admitted for the IV hydration and further workup and monitoring. A discussion was undertaken with the patient regarding previous advance care arrangements/decisions. The following advanced directives were noted by the patient and discussed with me at the time of admission. ADVANCED DIRECTIVES: 1. Living well: No 2. POLST: No 3. CODE STATUS: Full No Cold 4. Durable Power Assistant Public Defender [facility] care: No 5. Donor card: No The patient has expressed interest in not pursuing any form of resuscitation at this time. She has opted not to pursue intubation/mechanical ventilation, CPR, electrical cardioversion, or life-sustaining efforts involving drugs at the time of cardiopulmonary arrest. The patient's wishes were documented in the chart and orders regarding the patient's wishes entered into the [facility] CPOE system. The "Advance Care Plan Document" was not distributed to patient to discuss with her family. Less than 30 minutes was spent in performing the above tasks and documentation of the patient's advanced care plan.
[2017-03-18 18:08] VITALS: BP 136/62
--- NOTE | 2017-03-18 20:36 | ED MED RECONCILIATION SUMMARY ---
Patient: IMAN DO Medication Reconciliation Report [facility] VisitID: [id number] [address] [place] [address] 87y, F Registration Date/Time: 03/18/2017 Weight: 68.0 kg Height/Length: 62 in. BMI: 27.4 ALLERGIES: None The patient's Home Medications are listed below: NONE. The source(s) of the original Home Medication information: Not obtained. The following Medications were given to the patient in the Emergency Department: IV NS IV Fluids bolus 500 mL over 1 hour(s), then 500 mL/hr, administered: 03/18/2017 10:13:00 AM The following Medications were prescribed to the patient: None.
--- NOTE | 2017-03-18 20:36 | ED MED RECONCILIATION SUMMARY ---
Patient: IMAN DO Medication Reconciliation Report [facility] VisitID: [id number] [address] [place] [address] 87y, F Registration Date/Time: 03/18/2017 Weight: 68.0 kg Height/Length: 62 in. BMI: 27.4 ALLERGIES: None The patient's Home Medications are listed below: NONE. The source(s) of the original Home Medication information: Not obtained. The following Medications were given to the patient in the Emergency Department: IV NS IV Fluids bolus 500 mL over 1 hour(s), then 500 mL/hr, administered: 03/18/2017 10:13:00 AM The following Medications were prescribed to the patient: None.
--- NOTE | 2017-03-18 20:36 | ED MAR SUMMARY ---
..... Medication Administration Record [facility] [address] [place] [address] Patient: IMAN DO Visit ID: [id number] 87y, F Weight: 68.0 kg Height/Length: 62 in BMI: 27.4 ALLERGIES: None Start 10:13 03/18/2017 Christaina Duarte, Medication Administered: IV NS (SALINE), Dose: IV Fluids over 2 hour(s), Rate: 500 mL/hr, Bolus: 500 mL over 1 hour(s), Dispensed: 1000 mL bag, Site: #1 right AC. Medication Ordered: IV NS : initial bolus 500 mL (1000 mL/hr), then 250 mL/hr for X2 (NOW).
--- NOTE | 2017-03-18 20:36 | ED DISCHARGE INSTRUCTIONS ---
Patient: IMAN DO General Instructions [facility] VisitID: [id number] [place] [address] 87y, F Registration Date/Time: 03/18/2017 Microscopic hematuria. Acute mild left ventricular congestive heart failure. Moderate dehydration (with contraction alkalosis). Abnormal liver function test. Moderate hypernatremia. Tinea corporis (under breast folds). Tinea cruris. Fall on same level by slipping. Stage 1 decubitus ulcers - sacral area, right elbow and left calcaneal area Adult failure to thrive. ADDITIONAL INFORMATION Fall, Uncertain Cause You have had a fall today. but the cause of your fall is not certain. Falls can occur due to slipping, tripping or losing your balance. A fall can also occur from a fainting spell or seizure. Because the cause of your fall today is not certain, it is possible that a fainting spell or seizure was the cause. This means that it could happen again, without warning. If you fall again, without a cause, then you should return to this facility promptly to have further tests. Otherwise, follow up with your doctor as explained below. Home Care: 1) Rest today and resume your normal activities as soon as you are feeling back to normal. It is best to remain with someone who can check on you for the next 24 hours to watch for another episode of falling. 2) If you were injured during the fall, follow the advice from your doctor regarding care of your injury. 3) If you become light-headed or dizzy, lie down immediately or sit and lean forward with your head down. 4) As a precaution, do not drive a car or operate dangerous equipment, do not take a bath alone (use a shower instead) and do not swim alone until you see your doctor. A condition causing fainting or seizures must be ruled out before resuming these activities. 5)You may use acetaminophen (Tylenol) or ibuprofen (Motrin, Advil) to control pain, unless another pain medicine was prescribed. [ NOTE : If you have chronic liver or kidney disease or ever had a stomach ulcer or GI bleeding, talk with your doctor before using these medicines.] 6) Keep your appointments for any further testing that may have been scheduled for you. Follow Up: Unless, given other advice, call your doctor on the next office day to advise of your fall and to schedule an appointment. Get Prompt Medical Attention if any of the following occur: -- Another unexplained fall -- Dizziness, fainting or seizure -- Severe headache -- Chest pain or shortness of breath -- Palpitations (very rapid or very slow or irregular heart beat) -- Blood in vomit, stools (black or red color) -- Weakness of an arm or leg or one side of the face -- Difficulty with speech or vision You have been given the following additional information: Fall, Uncertain Cause (Electronically signed by Blade Borja DO 03/18/2017 20:35)
--- NOTE | 2017-03-18 20:36 | ED MAR SUMMARY ---
..... Medication Administration Record [facility] [address] [place] [address] Patient: IMAN DO Visit ID: [id number] 87y, F Weight: 68.0 kg Height/Length: 62 in BMI: 27.4 ALLERGIES: None Start 10:13 03/18/2017 Christiana Duarte, Medication Administered: IV NS (SALINE), Dose: IV Fluids over 2 hour(s), Rate: 500 mL/hr, Bolus: 500 mL over 1 hour(s), Dispensed: 1000 mL bag, Site: #1 right AC. Medication Ordered: IV NS : initial bolus 500 mL (1000 mL/hr), then 250 mL/hr for X2 (NOW).
[2017-03-18 20:41] VITALS: BP 143/63
[2017-03-18 22:51] VITALS: BP 147/59
[2017-03-19 02:17] VITALS: BP 149/66
[2017-03-19 06:31] VITALS: BP 141/64
[2017-03-19 10:29] VITALS: BP 145/61
[2017-03-19] MEDS ORDERED: LOTRISONE TOP (11:46)
--- NOTE | 2017-03-19 12:44 | DISCHARGE SUMMARY ---
ADMIT DATE: 03/18/2017 DISCHARGE DATE: 03/19/2017 DISCHARGE DIAGNOSES: 1. Dehydration. 2. Status post fall. 3. History of hypertension. 4. Hematuria. BRIEF HISTORY: This is an 87-year-old white female who was admitted on 2016 and presented to emergency after she was found by a caregiver on the floor in her place. The patient usually sleeps in the chair. She says that she slept on the chair again and she woke up on the floor and could not get up and had to stay on the floor for several hours until she was found and transferred to emergency. Emergency evaluation it was found that patient was dehydrated and weak and was admitted for IV hydration and observation. HOSPITAL COURSE: The patient was admitted to acute care and was started on IV hydration, which responded well. Also, UA shows 2+ blood in the urine and CPK was obtained in the beginning and today, they were not elevated, so no signs of rhabdomyolysis. The patient right now is doing fine and is strong, joking and laughing, sitting on the chair and has no specific complaints. The patient walked down the leon and pulse oximetry was 91% on room air. PHYSICAL EXAMINATION: VITAL SIGNS: Temperature is 98.9, pulse is 78, respirations 18, blood pressure 145/61, and oxygen saturation is 91%, after walking down the leon in room air. LUNGS: Clear to auscultation. No rhonchi or wheezing or crackles. HEART: Regular S1 and S2. No murmur. No S3 was heard. ABDOMEN: Soft, nontender. Bowel sounds are positive. EXTREMITIES: No edema. SKIN: The patient has a rash under the breast area consistent with a yeast infection. LAB/IMAGING: Today, white blood count is 9.3, hemoglobin is 11.4, hematocrit is 36.7, and platelet count is 144. Sodium was 151, potassium is 4, chloride is 110, CO2 is 34, creatinine 0.4, BUN is 17, glucose 95, calcium is 7.1, magnesium is 2.1. Repeat urine was not done today. DISCHARGE INSTRUCTIONS/MEDICATIONS: The patient will be discharged home with home health care arranged by inventory control planner. The patient also needs to follow up with her primary care doctor as an outpatient within the week. The patient does not take any medications at home, but I will put the patient on Lotrimin cream to apply topically twice a day for the yeast infection under the breasts.
== END 2017-03-19 16:00 | disposition home health service (06) ==
LOC: ED SRH 08:29 → TRANS SRH 11:16 → ACUTE2 SRH 11:16
PROVIDERS: ADMIT Emergency Medicine
DX: E87.0 Hyperosmolality and hypernatremia (principal); E86.0 Dehydration; R53.1 Weakness; S79.912A Unspecified injury of left hip, initial encounter; W01.0XXA Fall on same level from slipping, tripping and stumbling without subsequent striking against object, initial encounter; I11.0 Hypertensive heart disease with heart failure; I50.9 Heart failure, unspecified; R31.9 Hematuria, unspecified; B35.4 Tinea corporis; B35.6 Tinea cruris; L89.151 Pressure ulcer of sacral region, stage 1; L89.011 Pressure ulcer of right elbow, stage 1; L89.621 Pressure ulcer of left heel, stage 1; F03.90 Unspecified dementia, unspecified severity, without behavioral disturbance, psychotic disturbance, mood disturbance, and anxiety; Y92.039 Unspecified place in apartment as the place of occurrence of the external cause; Y99.8 Other external cause status